=== PATIENT | male | born 1990 | race Caucasian/White ===

== ENCOUNTER 2017-10-30 01:33 | Inpatient (IN) | payer OTHER ==
[2017-10-30 01:56] LABS: BASOPHIL (%) 0.3 % (0-1); BASOPHIL COUNT 0.1 K/uL (0-0.1); EOSINOPHIL (%) 0.2 % (0-5); HEMATOCRIT 43.6 % (38.0-50.0); HEMOGLOBIN 14.8 G/DL (12.5-16.6); IMMATURE GRANULOCYTE (%) 0.6 % (0.0-0.7); LYMPHOCYTE (%) 8.8 % (15-42); LYMPHOCYTE COUNT 1.5 K/uL (1.0-2.8); MCH 30.6 PG (29.0-34.0); MCHC 33.9 G/DL (30.0-36.0); MCV 90.3 FL (86-99); NEUTROPHIL (%) 84.1 % (45-76); NEUTROPHIL COUNT 14.4 K/uL (1.8-6.4); PLATELET COUNT 234 K/uL (156-360); RBC DIS.WIDTH-CV 13.6 % (11.8-14.6); RBC DIS.WIDTH-SD 44.7 % (39-53); RED BLOOD COUNT 4.83 M/uL (4.00-5.50); WHITE BLOOD COUNT 17.1 K/uL (4.1-10.2)
[2017-10-30 02:09] LABS: AMYLASE 87 IU/L (1-118); CHLORIDE 101 mEq/L (99-109); POTASSIUM 3.8 mEq/L (3.7-5.4); SODIUM 138 mEq/L (136-147)
[2017-10-30 02:10] LABS: GLUCOSE 165 mg/dL (70-99)
[2017-10-30 02:14] LABS: SERUM ETHYL ALCOHOL < 10 mg/dL
[2017-10-30 02:15] LABS: UREA NITROGEN (BUN) 20 mg/dL (9-23)
[2017-10-30 02:17] LABS: LIPASE 50 U/L (1.0-51.0)
[2017-10-30 02:18] LABS: CREATINE KINASE 85 IU/L (1-294); TOTAL CK 85 IU/L (1-294)
[2017-10-30 02:24] LABS: CK-MB 1.3 ng/mL (0.0-4.9); CKMB RELATIVE INDEX 1.5 (0.0-3.9); GFR ESTIMATE (CALCULATED) > 59 mL/min/ (58.99-99999)
[2017-10-30 02:25] LABS: TROP-I INTERPRETATION NEGATIVE; TROPONIN-I < 0.01 ng/mL (0.0-0.30)
== END 2017-10-30 06:05 | disposition left against medical advice (07) | DRG 83 ==
LOC: EME 01:33 → TRA 01:33 → EDOF 04:31 → ENRESERV 04:35 → CANRESERV 04:35 → EDOF 06:05
PROVIDERS: Emergency Medicine
DX: S06.5X9A Traumatic subdural hemorrhage with loss of consciousness of unspecified duration, initial encounter (principal); S21.119A Laceration without foreign body of unspecified front wall of thorax without penetration into thoracic cavity, initial encounter; X99.9XXA Assault by unspecified sharp object, initial encounter; S71.111A Laceration without foreign body, right thigh, initial encounter; S01.511A Laceration without foreign body of lip, initial encounter; F19.10 Other psychoactive substance abuse, uncomplicated
CPT/HCPCS: 70450; 71045; 71260; 72125; 75635; 80048; 81003; 82150; 82550; 82553; 83690; 84484; 85025; 86850; 86900; 86901; 93005; 99281; 99285; G0480; J0690